=== PATIENT | male | born 1985 | race Caucasian/White ===

== ENCOUNTER 2022-07-22 12:09 | Emergency (ER) | payer OTHER, SELFPAY ==
[2022-07-22 12:23] VITALS: BP 149/104; PULSE 90; RESP 20; TEMP 36.6; O2SAT 98; BMI 41.4
--- NOTE | 2022-07-22 15:56 | ED.EYEPROB ---
HPI - Eye Problem <ASHLYN Cpoe - Last Filed: 07/22/22 17:02> General Chief complaint: Eye Problems Stated complaint: Spotchy vision, headaches x2days Time Seen by Provider: 07/22/22 15:40 Source: patient Mode of arrival: Family Vehicle History of Present Illness HPI Narrative: This is a 37-year-old male presents emergency complaining increasing frequency of headaches over the the last month, especially over the last 2 days with associated blurred vision with headache. He denies nausea or vomiting, fever, chills, upper respiratory infection, trauma, or other. He has right eye proptosis at baseline. States that he has been Working on his computer a lot lately, and having increased headaches, states that with his headache his vision is blurry sometimes. He has been taking ibuprofen and that has helped with rest and water. He denies trying other medications. He is pending a new patient primary care appointment, has not seen anyone for his headaches in the past, does not have a history of them except for over the last 1-2 months. He denies this being the worse it ever is, states that his symptoms right now are not that at all and it has improved since earlier this morning. He denies neck pain, or back pain. He denies any weakness, dizziness, altered mentation or other. Related Data Previous Rx's Medication Instructions Recorded ondansetron 4 mg disintegrating 4 mg PO Q8H PRN nausea and 07/22/22 tablet vomiting #10 tabs ondansetron 4 mg disintegrating 4 mg PO Q8H PRN nausea and 07/22/22 tablet vomiting #10 tabs Allergies Allergy/AdvReac Type Severity Reaction Status Date / Time No Known Drug Allergies Allergy Verified 07/22/22 12:31 Review of Systems <ASHLYN Cope - Last Filed: 07/22/22 17:02> Review of Systems ROS Unobtainable: All systems reviewed & are unremarkable except as noted in HPI and below Patient History <ASHLYN Cope - Last Filed: 07/22/22 17:02> Social History Smoking Status: Never smoker Smoking Status: Never smoker alcohol intake frequency: 0-2 drinks per day Substance Use Type: marijuana Exam <ASHLYN Cope - Last Filed: 07/22/22 17:02> Narrative Exam Narrative: Reviewed vitals signs and nursing notes. General: cooperative, comfortable, in no acute distress, well groomed HEENT: symmetrical facial expressions, moist mucous membranes, right eye proptosis, EOMI, PERRLA bilaterally, visual acuity right uncorrected 20 40, left uncorrected 2020, bilateral 2012. Left middle ear effusion, without abnormal TMs otherwise, without congestion or sinus tenderness, without C-spine tenderness to palpation, full range of motion of his neck MSK: moves all extremities, neurovascularly intact, no weakness, normal tone Skin: brisk capillary refill, without pallor or erythema Neuro: normal speech and cognition, A&O x3, ambulatory, clear speech, without any neuro deficit on exam Initial Vital Signs Initial Vital Signs: Vital Signs Temperature 97.8 F 07/22/22 12:23 Pulse Rate 90 07/22/22 12:23 Respiratory Rate 20 07/22/22 12:23 Blood Pressure 149/104 H 07/22/22 12:23 Pulse Oximetry 98 07/22/22 12:23 Oxygen Delivery Method 07/22/22 12:23 <Ratna Stewart DO - Last Filed: 07/23/22 12:52> Initial Vital Signs Initial Vital Signs: Vital Signs Temperature 97.8 F 07/22/22 12:23 Pulse Rate 90 07/22/22 12:23 Respiratory Rate 20 07/22/22 12:23 Blood Pressure 149/104 H 07/22/22 12:23 Pulse Oximetry 98 07/22/22 12:23 Oxygen Delivery Method 07/22/22 12:23 Course <ASHLYN Cope - Last Filed: 07/22/22 17:02> Vital Signs Vital signs: Vital Signs - 8 hr 07/22/22 12:23 07/22/22 16:04 Temperature 97.8 F 98.4 F Pulse Rate 90 71 Respiratory Rate 20 Blood Pressure 149/104 H 134/90 Pulse Oximetry 98 100 Oxygen Delivery Method Room Air Room Air <Ratna Stewart DO - Last Filed: 07/23/22 12:52> Vital Signs Vital signs: Vital Signs - 8 hr 07/22/22 12:23 07/22/22 16:04 Temperature 97.8 F 98.4 F Pulse Rate 90 71 Respiratory Rate 20 Blood Pressure 149/104 H 134/90 Pulse Oximetry 98 100 Oxygen Delivery Method Room Air Room Air [facility] - Eye Problem <Tayla ElliottASHLYN - Last Filed: 07/22/22 17:02> [facility] Narrative Medical decision making narrative: This is a 37-year-old gentleman who presents to the emergency department complaining of increasing frequency headaches over the last 1-2 months, states that his vision has been blurry with a last few headaches and states that that is a new symptom for him as he does not have a history of migraines. He does not have upper respiratory illness symptoms, he does have right eye proptosis at baseline, works on a computer and does not use corrective lenses, has not seen an neurology stroke physician in many years, and does not wear blue light lenses. I suspect that his headaches are likely related to his vision disability, his frequent computer use, and headache combined with blurred vision. His symptoms have been improved, discussed use migraine cocktail when the symptoms come on. Prescribed for him Zofran to use in conjunction with Tylenol and ibuprofen for his next headache with plenty of hydration. Patient has follow-up scheduled with a new provider, Lucero Dixon , I recommend that he discuss his migraine history with her and to follow-up with an neurology stroke physician before the end of the year if he is able. He may benefit from corrective lenses. Headache considerations include, but not limited to: Subarachnoid hemorrhage, but unlikely as patient denies sudden onset of pain, not worst of life, or neck pain Meningitis considered, but thought unlikely given lack of Brudzinski's, Kernig's sign, altered mental status or fever Giant cell arteritis considered, but thought unlikely given lack of unilateral findings, pain in adventism, vision change HTN Emergency considered, but thought unlikely given normal vitals Other serious diagnoses considered unlikely given lack of red flag findings such as sudden onset, increasing frequency, immunocompromise, systemic signs (fever, chills, stiff neck, or rash), focal neurologic findings, trauma, blood thinners, etc. Patient is appropriate and amenable to discharge home. Vital signs are stable on repeat examination is unremarkable. Patient has been informed of results. Patient has been given strict return to ER precautions for any new or worsening symptoms. Patient understands to follow up closely with outpatient providers as instructed. Patient understands plan and agrees to discharge home. All questions and concerns answered at this time. Discharge Plan Departure Patient Disposition: Home Clinical Impression: Ocular migraine Instructions: Migraine -- Adult Activity Restrictions/Additional Instructions: *You have been diagnosed with symptoms most consistent with migraine and ocular migraine. I am sorry for your symptoms, please follow-up with an neurology stroke physician that covered by your insurance, I have a strong feeling that your computer work and vision are contributing to these headaches both in severity and frequency. If you develop the worst headache of your life, have a black curtain covering your vision or some other significant change, please come back to the emergency department. For the next headache, please take 975 mg of Tylenol with 800 mg of ibuprofen, large glass of water, and rest. Please come back to the emergency department if you have nausea and vomiting or worsening pain. I hope you feel better soon, try some flu-like glasses, that can make it easier for you on the computer. I wish you well. I sent Zofran, a nausea medicine to the pharmacy at [facility], take this in conjunction with Tylenol ibuprofen for migraine, it can help prevent severe migraine and vision changes. *What to do: *Please continue to take your regular medications as directed. [x ] New medication prescriptions sent to your pharmacy: [[facility] ] [ ] New medication written as a paper prescription [ ] No new medications given *Please follow up with your primary care provider in 2-3 days, call for an appointment. Let them know you were seen in the Emergency Department and that we asked that you be seen for follow-up. We will electronically transmit a record of today's note if your PCP is in our system *If you do not have a primary care provider please contact [phone] to establish care with one of the [facility] primary care providers. *Return to Emergency Department if you should have any new, worsening, or concerning symptoms, such as [fever greater than 101F, chills, worsening pain, persistent vomiting or other bothersome symptoms]. Prescriptions: New ondansetron 4 mg tablet,disintegrating 4 mg PO Q8H PRN (Reason: nausea and vomiting) Qty: 10 0RF ondansetron 4 mg tablet,disintegrating 4 mg PO Q8H PRN (Reason: nausea and vomiting) Qty: 10 0RF Referrals: Agapito Dixon ARNP [Primary Care Provider] - Visit Report Forms: Patient Portal/API <Ratna Stewart DO - Last Filed: 07/23/22 12:52> Cosign ED Attending Miriam Attestation: I was immediately available in the department for consultation. Documentation has been reviewed.
--- NOTE | 2022-07-22 15:58 | PC.NURSE ---
assessment per Tayla GOLDBERG, this nurse in agreement.
[2022-07-22 16:04] VITALS: BP 134/90; PULSE 71; TEMP 36.9; O2SAT 100
== END 2022-07-22 16:05 | disposition home or self-care (01) ==
PROVIDERS: Emergency Provider Nurse Practitioner Critical Care Medicine; PCP Registered Nurse Diabetes Educator
DX: G43.109 Migraine with aura, not intractable, without status migrainosus (principal); H53.8 Other visual disturbances
CPT/HCPCS: 99281; 99282

== ENCOUNTER → 2022-12-17 12:16 | Outpatient (CLI) | payer OTHER, SELFPAY ==
[2022-12-17 14:07] LABS: Add Manual Diff / Slide Review NO; Basophils Absolute Auto 0 /uL (0-100); Basophils Percent Auto 0.6 % (0-2); Eosinophils Absolute Auto 0 /uL (0-450); Eosinophils Percent Auto 0.5 % (2-4); Hematocrit 45.7 % (41-53); Hemoglobin 16.2 g/dL (13.5-17.5); Lymphocytes Absolute Auto 1700 /uL (1100-4500); Lymphocytes Percent Auto 29.5 % (25-40); Mean Corpuscular HGB Conc 35.5 % (30-36); Mean Corpuscular Hemoglobin 32.8 PG (26-34); Mean Corpuscular Volume 92.4 fL (80-100); Monocytes Absolute Auto 400 /uL (0-900); Monocytes Percent Auto 7.4 % (3-14); Neutrophils Absolute Auto 3600 /uL (1500-7000); Platelet Count 255 X10^3/uL (150-400); Red Blood Cell Count 4.95 X10^6/uL (4.5-5.9); Red Cell Distribution Width 12.4 % (11.6-14.8); White Blood Cell Count 5.8 X10^3/uL (4.5-11.0)
[2022-12-17 14:43] LABS: Alanine Aminotransferase 66 IU/L (<50); Albumin 4.3 g/dL (3.5-5.0); Albumin Globulin Ratio 1.3 (1.0-2.8); Alkaline Phosphatase 110 U/L (38-126); Aspartate Aminotransferase 51 IU/L (17-59); BUN Creatinine Ratio 12.1 (6-22); Bilirubin Total 0.8 mg/dL (0.2-1.3); Blood Urea Nitrogen 13 mg/dL (9-20); Calcium 9.4 mg/dL (8.4-10.2); Carbon Dioxide 30 mmol/L (22-32); Chloride 103 mmol/L (98-107); Cholesterol 173 mg/dL (140-199); Estimated Glomerular Filt Rate > 60 mL/min (>60); Globulin 3.2 g/dL (1.7-4.1); Glucose 89 mg/dL (70-100); HDL Cholesterol 44 mg/dL (40-60); HEMOLYSIS < 15 (0-50); LDL Cholesterol Calculated 104 mg/dL (<100); Potassium 4.1 mmol/L (3.4-5.1); Sodium 138 mmol/L (137-145); Total Protein 7.5 g/dL (6.3-8.2); Triglycerides 123 mg/dL (35-150)
[2022-12-17 16:43] LABS: Creatinine Urine Random 119.7 mg/dL
[2022-12-17 16:51] LABS: Microalbumin Urine Random < 0.6 mg/dL (0-1.6)
[2022-12-17 17:11] LABS: TSH w/ Reflex to FT4 3.35 uIU/mL (0.47-4.68)
== END ==
PROVIDERS: PCP Family Medicine; Referring Provider Family Medicine; Visit Provider Family Medicine
DX: Z83.3 Family history of diabetes mellitus (principal); Z00.00 Encounter for general adult medical examination without abnormal findings
CPT/HCPCS: 36415; 80053; 80061; 82043; 82570; 83036; 84443; 85025

== ENCOUNTER → 2023-04-12 08:03 | Outpatient (CLI) | payer OTHER, SELFPAY ==
[2023-04-12 08:32] LABS: Add Manual Diff / Slide Review NO; Basophils Absolute Auto 0 /uL (0-100); Basophils Percent Auto 0.4 % (0-2); Eosinophils Absolute Auto 0 /uL (0-450); Eosinophils Percent Auto 0.7 % (2-4); Hematocrit 43.3 % (41-53); Hemoglobin 15.6 g/dL (13.5-17.5); Lymphocytes Absolute Auto 1700 /uL (1100-4500); Lymphocytes Percent Auto 32.8 % (25-40); Mean Corpuscular Volume 91.7 fL (80-100); Monocytes Absolute Auto 500 /uL (0-900); Monocytes Percent Auto 10.1 % (3-14); Neutrophils Absolute Auto 2900 /uL (1500-7000); Platelet Count 235 X10^3/uL (150-400); Red Blood Cell Count 4.72 X10^6/uL (4.5-5.9); Red Cell Distribution Width 12.3 % (11.6-14.8); White Blood Cell Count 5.2 X10^3/uL (4.5-11.0)
[2023-04-12 08:59] LABS: Alanine Aminotransferase 42 IU/L (<50); Albumin Globulin Ratio 1.4 (1.0-2.8); Alkaline Phosphatase 89 U/L (38-126); Aspartate Aminotransferase 38 IU/L (17-59); BUN Creatinine Ratio 10.5 (6-22); Bilirubin Total 1.3 mg/dL (0.2-1.3); Blood Urea Nitrogen 13 mg/dL (9-20); Carbon Dioxide 28 mmol/L (22-32); Chloride 104 mmol/L (98-107); Estimated Glomerular Filt Rate > 60 mL/min (>60); Globulin 2.9 g/dL (1.7-4.1); Glucose 101 mg/dL (70-100); HEMOLYSIS < 15 (0-50); Potassium 4.3 mmol/L (3.4-5.1); Sodium 138 mmol/L (137-145); Total Protein 6.9 g/dL (6.3-8.2)
== END ==
PROVIDERS: PCP Family Medicine; Referring Provider Family Medicine; Visit Provider Family Medicine
DX: F32.A Depression, unspecified (principal); K52.9 Noninfective gastroenteritis and colitis, unspecified
CPT/HCPCS: 36415; 80053; 85025

== ENCOUNTER 2023-07-22 08:46 | Day surgery (SDC) | payer OTHER, SELFPAY ==
--- NOTE | 2023-07-22 | PATH_ITS ---
[facility] Accession Number: [id number] No. of containers..06 Tissue . 01 Material submitted: . PART A: ileum - TERMINAL ILEUM PART B: colon - ASCENIDNG POLYPS PART C: colon - RANDOM COLON PART D: colon - DESCENDING PART E: sigmoid colon - SIGMOID 30cm POLYP PART F: rectum - RECTAL POLYP . 01 Diagnosis: A. Terminal Ileum, Biopsy: Severely active ileitis with ulcer. Negative for granulomas, dysplasia, and malignancy. . B. Ascending Colon, Polyps: Sessile serrated adenoma. Benign intramucosal lipoma. . C. Random Colon, Biopsies: Colonic mucosa with no diagnostic abnormality. Negative for active, chronic, and microscopic colitis. Negative for dysplasia and malignancy. . D. Descending Colon, Biopsy: Colonic mucosa with vascular congestion, focally denuded epithelium and focal crypt atrophy. Please see comment. Negative for granulomas, dysplasia, and malignancy. . E. Sigmoid Colon, Polyp 30 cm: Tubulovillous adenoma. No evidence of malignancy or high-grade dysplasia. . F. Rectum, Polyp: Tubular adenoma. [facility] 07/31/2023 1755 Local . 01 Comment: A. The terminal ileum biopsies show severe neutrophilic activity including ulceration. No obvious viral cytopathic effects or parasitic organisms are identified. No pseudopyloric metaplasia is seen. The principal differential diagnosis includes medication-related mucosal injury (i.e., NSAIDs) and Crohn's disease. . D. The descending colon biopsy shows scattered areas of vascular congestion and a focally denuded epithelium with adjacent focal crypt atrophy suggestive of ischemia-type changes. The differential diagnosis includes true vascular ischemia, ischemia due to infection (i.e., enterohemorrhagic E. coli, C. difficile, etc.) or ischemia due to trauma/prolapse. . 01 Electronically signed: . Tayla Quintero MD, Pathologist NPI- [id number] . 01 Gross description: . Part A: TERMINAL ILEUM: Received in formalin are 2 fragment(s) of guthrie, soft tissue measuring 0.3 x 0.3 x 0.2 cm to 0.4 x 0.2 x 0.2 cm submitted entirely in 1 cassette(s) Part B: ASCENIDNG POLYPS: Received in formalin are 2 fragment(s) of guthrie, soft tissue measuring 0.2 x 0.2 x 0.2 cm to 0.4 x 0.2 x 0.2 cm submitted entirely in 1 cassette(s) Part C: RANDOM COLON: Received in formalin is 1 fragment(s) of guthrie, soft tissue measuring 0.4 x 0.3 x 0.2 cm submitted entirely in 1 cassette(s) Part D: DESCENDING: Received in formalin are 2 fragment(s) of guthrie, soft tissue measuring 0.1 x 0.1 x 0.1 cm to 0.4 x 0.2 x 0.2 cm submitted entirely in 1 cassette(s) Part E: SIGMOID 30cm POLYP: Received in formalin is 1 fragment of guthrie soft tissue measuring 1.6 x 1.5 x 1.5 cm. Specimen is sectioned and submitted in its entirety in 2 cassettes. Part F: RECTAL POLYP: Received in formalin is 1 fragment(s) of guthrie, soft tissue measuring 0.2 x 0.2 x 0.2 cm submitted entirely in 1 cassette(s) /JOSE A 07/23/2023 1923 Local . 01 Pathologist provided ICD-10: D12.2, D12.5, D12.8 . 01 CPT . 549491, 400000, 429081, 772229, 785333, 538370 Specimen Comment: A courtesy copy of this report has been sent to [phone] Performed at: 01 [facility] [address] [place] [address] [id number] MD Andrew Mcgill MD Phone: [phone]
[2023-07-22 09:13] VITALS: BP 137/101; PULSE 93; RESP 16; TEMP 36.3; O2SAT 97; BMI 45.6
[2023-07-22] MEDS: LACTATED RINGERS 1,000 ML 120 ML IV (09:20)
--- NOTE | 2023-07-22 09:59 | PM.HP.1 ---
History of Present Illness History of Present Illness Date Patient Seen: 07/22/23 Time Patient Seen: 09:59 Chief complaint: SDC Narrative: I reviewed the recent office note. No significant changes. Patient has been having diarrhea constipation abdominal pain and rectal bleeding. Colonoscopy is pursued today. [facility] Medical History Chronic diarrhea Depression Chorioretinopathy Decreased renal function (~2021) Kidney stones (~2021) Seborrheic dermatitis Heart abnormality (~2020) Migraine headache with aura (~2022) Well adult health check Family History Father Cancer Diabetes mellitus Hypertension Hyperlipidemia Mental health problem Mother Diabetes mellitus Hypertension Hyperlipidemia Brother Diabetes mellitus Mental health problem Sister Diabetes mellitus Grandfather History of heart disease Mental health problem Stroke Grandmother History of heart disease Stroke Grandfather No problems noted. Grandmother Cancer Diabetes mellitus Social History household members: spouse Smoking Status: Never smoker alcohol intake: current Meds Home Medications and Allergies Allergies Allergy/AdvReac Type Severity Reaction Status Date / Time No Known Drug Allergies Allergy Verified 07/22/23 09:29 Review of Systems Review of Systems ROS: Yes All systems reviewed with the patient and are negative except as otherwise documented Exam Vital Signs (past 8 hours): - 07/22/23 09:13 Temperature 97.3 F L Pulse Rate 93 H Respiratory Rate 16 Blood Pressure 137/101 H Pulse Oximetry 97 Oxygen Delivery Method Room Air Oxygen Delivery Method Room Air Const General: cooperative HENMT Head: normal to inspection Eyes General: appearance normal, both eyes and all related structures Neck Neck: normal visual inspection Chest Chest: normal inspection of the chest Resp Effort & Inspection: normal respiratory effort Cardio Rate: regular rate GI Inspection: normal to inspection Skin General: no rashes or lesions noted Neuro General: patient alert and patient awake Extrem General: normal to inspection and no pedal edema Psych Appearance: grossly normal Assessment & Plan Assessment & Plan narrative: 38-year-old male with abdominal pain, diarrhea, constipation, rectal bleeding. Diagnostic colonoscopy is pursued today.
--- NOTE | 2023-07-22 10:00 | PM.PREOP ---
Pre-operative Note Interval Note History & Physical reviewed/Exam performed by Physician: Yes Changes to H&P: No ASA Class (for procedural sedation): III
--- NOTE | 2023-07-22 11:13 | PM.OP.COLON ---
Operative Date/Time/Diagnoses Date of procedure: 07/22/23 Time of procedure: 11:13 Pre-op diagnosis: Rectal bleeding, diarrhea, constipation, abdominal pain Post-op diagnosis: same Procedure & Clinicians Study performed: Colonoscopy with hot snare polypectomy, cold snare polypectomy, and biopsies. Same procedure as scheduled: Yes Indications: Rectal bleeding, diarrhea, constipation, abdominal pain Surgeon: Chan Medina Procedure Notes SCOAP/Timeout: Done Procedure in detail: After the risks and benefits were explained, written and verbal informed consent was obtained. The patient was brought into the procedure room and placed into the left lateral decubitus position. Please see anesthesia notes for sedation details. Digital rectal examination was accomplished. The scope was introduced into the patient and advanced under direct visualization to the cecum as identified by the appendiceal orifice and ileocecal valve. The scope was slowly withdrawn to carefully examine the mucosa for any defects or lesions. Comprehensive imaging was accomplished throughout the rectum including the dentate line. The colon was decompressed, the scope was then removed from the patient who tolerated the procedure well. Adult colonoscope Bowel prep adequate Scope withdrawal time: 21 minutes Sedation minutes: 29 Complications: none Impression: The terminal ileum was inspected and demonstrated some erosive features. These were biopsied. There was no evidence of proctitis. In the descending colon there were some scattered erosive features and these were targeted for histopathology. I otherwise took a separate set of random colon biopsies for histologic contrast from normal-appearing colon. In the ascending colon there was a diminutive polyp removed with Jumbo forceps. Adjacent this polyp was a sessile 6 mm polyp removed with hot snare. In the sigmoid colon at about 30 cm from the anal verge there was a pedunculated 20 mm polyp removed with hot snare. In the rectum there was a diminutive 5 mm polyp removed with cold snare. The patient had evidence of grade 1-2 internal hemorrhoids. Endoscopic diagnosis 1. Multiple colon polyps 2. Mild terminal ileitis 3. Scattered descending colon erosive features 4. Grade 1-2 hemorrhoids. Post-procedure Plan for aftercare: 1. Await histology. 2. Follow up GI clinic. 3. Repeat colonoscopy will be contingent on histology results but will likely be in no later than 3 years. Disposition: PACU
[2023-07-22 11:14] VITALS: BP 117/80; PULSE 96; RESP 14; TEMP 36.4; O2SAT 98
[2023-07-22 11:20] VITALS: BP 122/78; PULSE 78; RESP 16; TEMP 36.2; O2SAT 96
[2023-07-22 11:25] VITALS: BP 122/78; PULSE 78; RESP 13; O2SAT 96
[2023-07-22 11:38] VITALS: BP 137/95; PULSE 72; RESP 14; TEMP 36.2; O2SAT 97
== END 2023-07-22 11:46 | disposition home or self-care (01) ==
PROVIDERS: PCP Family Medicine; Referring Provider Internal Medicine Gastroenterology; Visit Provider Internal Medicine Gastroenterology
PROC: 0DJD8ZZ Inspection of Lower Intestinal Tract, Via Natural or Artificial Opening Endoscopic (ICD-10-PCS; CPT 45378; principal; 2023-07-22 10:00)
DX: K62.5 Hemorrhage of anus and rectum (principal); R10.30 Lower abdominal pain, unspecified; K64.1 Second degree hemorrhoids; K52.9 Noninfective gastroenteritis and colitis, unspecified; K52.89 Other specified noninfective gastroenteritis and colitis; D12.2 Benign neoplasm of ascending colon; D12.5 Benign neoplasm of sigmoid colon; D12.8 Benign neoplasm of rectum
CPT/HCPCS: 45385; 45380; J2704

== ENCOUNTER 2024-04-24 08:35 | Emergency (ER) | payer OTHER, SELFPAY ==
[2024-04-24] VITALS (14 sets, daily range): BP systolic 133–160; BP diastolic 70–90; PULSE 65–75; RESP 16; TEMP 36.6; O2SAT 95–100; BMI 47.5
--- NOTE | 2024-04-24 08:54 | EKG_ITS ---
[facility] [address] [address] Test Date: 2024-04-24 Pat Name: Andrew Adam Department: [facility] Room: Gender: Male [employer] Feeder: RUSSEL : 1985 Requested By: Order Number: [id number] Reading MD: Omar Delacruz MD Measurements Intervals [place] Rate: 70 P: 33 WV: 166 QRS: -14 QRSD: 92 T: -1 QT: 420 QTc: 453 Interpretive Statements Normal sinus rhythm Electronically Signed On 04-24-2024 12:54:58 PDT by Omar Delacruz MD
[2024-04-24 09:22] LABS: Add Manual Diff / Slide Review NO; Basophils Absolute Auto 100 /uL (0-100); Basophils Percent Auto 0.9 % (0-2); Eosinophils Absolute Auto 0 /uL (0-450); Eosinophils Percent Auto 0.7 % (2-4); Hematocrit 44.1 % (41-53); Hemoglobin 15.5 g/dL (13.5-17.5); Lymphocytes Absolute Auto 1500 /uL (1100-4500); Lymphocytes Percent Auto 26.1 % (25-40); Mean Corpuscular Hemoglobin 32.8 PG (26-34); Mean Corpuscular Volume 93.8 fL (80-100); Monocytes Absolute Auto 500 /uL (0-900); Monocytes Percent Auto 8.7 % (3-14); Neutrophils Absolute Auto 3700 /uL (1500-7000); Neutrophils Percent Auto 63.6 % (50-75); Platelet Count 254 X10^3/uL (150-400); Red Blood Cell Count 4.71 X10^6/uL (4.5-5.9); Red Cell Distribution Width 12.5 % (11.6-14.8); White Blood Cell Count 5.9 X10^3/uL (4.5-11.0)
[2024-04-24 09:29] LABS: Prothrombin Time 11.1 SECONDS (9.4-12.5)
[2024-04-24 09:32] LABS: PTT Partial Thromboplastin Tim 37 SECONDS (25.1-36.5)
[2024-04-24 09:33] LABS: Alanine Aminotransferase 59 IU/L (<50); Albumin Globulin Ratio 1.3 (1.0-2.8); Alkaline Phosphatase 104 U/L (38-126); Aspartate Aminotransferase 45 IU/L (17-59); BUN Creatinine Ratio 13.3 (6-22); Bilirubin Total 0.9 mg/dL (0.2-1.3); Blood Urea Nitrogen 15 mg/dL (9-20); Calcium 8.9 mg/dL (8.4-10.2); Carbon Dioxide 27 mmol/L (22-32); Chloride 104 mmol/L (98-107); Estimated Glomerular Filt Rate > 60 mL/min (>60); Glucose 102 mg/dL (70-100); HEMOLYSIS 16 (0-50); Potassium 4.2 mmol/L (3.4-5.1); Sodium 135 mmol/L (137-145)
[2024-04-24] MEDS: PANTOPRAZOLE 40 MG VIAL 80 MG IV (09:42)
--- NOTE | 2024-04-24 09:48 | ED.GIBLEED ---
HPI - GI Bleed General Chief complaint: GI Bleed Stated complaint: black stool, abd cramping Time Seen by Provider: 04/24/24 08:42 History of Present Illness HPI Narrative: 38-year-old male with history of prior GI bleeding last year, recalls black and slight red stools, had lower endoscopy by a GI specialist from [place] done here in [place], polyps were removed, no cancers, no diagnosis specifically otherwise identified, no upper endoscopy, was advised not to take ibuprofen, last night had crampy abdominal discomfort lower, with a large tarry stool, felt better, no weakness or dizziness, no syncope or presyncope, no chest pain or shortness of breath, felt better, slept overnight, again this morning had loose stool that did not seem to have any black or red color, then another small loose stool with slight black color component 7 this morning, still without dizziness, no syncope or presyncope symptoms. Abdominal cramping seems present but decreased from prior. No fevers or chills. No recent antibiotics. He does not recall any established diagnosis of Crohn's disease, inflammatory bowel disease, cancers of the bowel. He does not take blood thinner medications. No injury trauma. Denies use of Pepto-Bismol Related Data Previous Rx's Medication Instructions Recorded amoxicillin 875 mg-potassium 1 tab PO BID #20 tabs 04/24/24 clavulanate 125 mg tablet Allergies Allergy/AdvReac Type Severity Reaction Status Date / Time No Known Drug Allergies Allergy Verified 11/05/23 13:40 Review of Systems Review of Systems Narrative: see HPI Patient History Medical History (Updated 04/24/24 @ 13:11 by Nico Sanchez MD) Pre-operative cardiovascular examination Inflammatory bowel disease (ulcerative colitis) Chronic diarrhea Depression Chorioretinopathy Decreased renal function (~2021) Kidney stones (~2021) Seborrheic dermatitis Heart abnormality (~2020) Migraine headache with aura (~2022) Well adult health check Family History Father Cancer Diabetes mellitus Hypertension Hyperlipidemia Mental health problem Mother Diabetes mellitus Hypertension Hyperlipidemia Brother Diabetes mellitus Mental health problem Sister Diabetes mellitus Grandfather History of heart disease Mental health problem Stroke Grandmother History of heart disease Stroke Grandfather No problems noted. Grandmother Cancer Diabetes mellitus Social History household members: spouse Smoking Status: Never smoker alcohol intake: current Smoking Status: Never smoker alcohol intake frequency: holidays/special occasions only Substance Use Type: marijuana Exam Narrative Exam Narrative: GENERAL: Well-developed patient, in mild distress. Morbidly obese HEAD: Atraumatic. Normocephalic. EYES: Pupils equal round and reactive. Extraocular motions intact. No scleral icterus. No injection or drainage. ENT: Nose without bleeding, purulent drainage. Throat without erythema, tonsillar hypertrophy or exudate. Airway patent. NECK: Trachea midline. Non tender CARDIOVASCULAR: Regular rate and rhythm without murmurs, gallops, or rubs. RESPIRATORY: Clear to auscultation. Breath sounds equal bilaterally. No wheezes, rales, or rhonchi. GASTROINTESTINAL: Abdomen soft, non-tender, nondistended. EXTREMITIES: No edema or joint tenderness. BACK: Nontender without deformity or crepitance. No flank tenderness. NEURO: AOx3. Right lateral eye deviation since childhood, has had corrective surgery, no diplopia. Otherwise normal cranial nerves, no other gross motor defects SKIN: No rash or erythema of visible areas Initial Vital Signs Initial Vital Signs: Vital Signs Pulse Rate 69 04/24/24 08:53 Blood Pressure 141/90 H 04/24/24 08:53 Pulse Oximetry 98 04/24/24 08:53 Course Orders Ordered: Discontinued Medications Amoxicillin/Clavulanate Potassium (Amoxicillin/Clav 875/125 Mg) 1 tab PO NOW ONE Stop: 04/24/24 12:25 Last Admin: 04/24/24 12:48 Dose: Not Given Documented By: BRENT Piperacillin Sod/Tazobactam (Sod 4.5 gm/ Sodium Chloride) 100 mls @ 200 mls/hr IV NOW ONE Stop: 04/24/24 12:26 Last Infusion: 04/24/24 13:29 Dose: Infused Documented By: Admin: 04/24/24 12:50 Dose: 200 mls/hr Documented By: BRENT Ondansetron HCl (Ondansetron 4 Mg/2 Ml Inj) 4 mg IV NOW PRN PRN Reason: Nausea And Vomiting Ondansetron HCl (Ondansetron 4 Mg Odt) 4 mg SL NOW PRN PRN Reason: Nausea And Vomiting Pantoprazole Sodium (Pantoprazole 40 Mg Vial) 80 mg IV NOW ONE Stop: 04/24/24 08:45 Last Admin: 04/24/24 09:42 Dose: 80 mg Documented By: CTS Vital Signs Vital signs: Vital Signs - 8 hr 04/24/24 12:50 04/24/24 12:55 Pulse Rate 71 Blood Pressure 142/83 H Pulse Oximetry 99 MDM - GI Bleed Lab Data Attestation: I reviewed the patient's lab results. 04/24/24 09:08 04/24/24 09:08 Labs: Lab Results 04/24/24 Range/Units 09:08 WBC 5.9 (4.5-11.0) X10^3/uL RBC 4.71 (4.5-5.9) X10^6/uL Hgb 15.5 (13.5-17.5) g/dL Hct 44.1 (41-53) % MCV 93.8 (80-100) fL MCH 32.8 (26-34) PG MCHC 35.0 (30-36) % RDW 12.5 (11.6-14.8) % Plt Count 254 (150-400) X10^3/uL Neut % (Auto) 63.6 (50-75) % Lymph % (Auto) 26.1 (25-40) % Barry % (Auto) 8.7 (3-14) % Eos % (Auto) 0.7 L (2-4) % Baso % (Auto) 0.9 (0-2) % Neut # (Auto) 3700 (0725-9012) /uL Lymph # (Auto) 1500 (4620-3565) /uL Barry # (Auto) 500 (0-900) /uL Eos # (Auto) 0 (0-450) /uL Baso # (Auto) 100 (0-100) /uL PT 11.1 (9.4-12.5) SECONDS INR 1.0 (0.9-1.3) APTT 37 H (25.1-36.5) SECONDS Sodium 135 L (137-145) mmol/L Potassium 4.2 (3.4-5.1) mmol/L Chloride 104 (98-107) mmol/L Carbon Dioxide 27 (22-32) mmol/L BUN 15 (9-20) mg/dL Creatinine 1.13 (0.66-1.25) mg/dL Estimated GFR > 60 (>60) mL/min BUN/Creatinine Ratio 13.3 (6-22) Glucose 102 H (70-100) mg/dL Calcium 8.9 (8.4-10.2) mg/dL Total Bilirubin 0.9 (0.2-1.3) mg/dL AST 45 (17-59) IU/L ALT 59 H (<50) IU/L Alkaline Phosphatase 104 (38-126) U/L Total Protein 7.0 (6.3-8.2) g/dL Albumin 4.0 (3.5-5.0) g/dL Globulin 3.0 (1.7-4.1) g/dL Albumin/Globulin Ratio 1.3 (1.0-2.8) Blood Type O Positive Antibody Screen Negative Urine Dip Bedside Urine Glucose Negative Bedside Urine Bilirubin - Negative Bedside Urine Ketone - Negative Urine Specific [place] 1.015 Bedside Urine Occult Blood - Negative Bedside Urine pH 8.0 Bedside Urine Protein - Negative Bedside Urine Urobilinogen - Negative Bedside Urine Nitrite - Negative Bedside Urine Leukocytes - Negative Esterase ECG Data Attestation: I personally reviewed and interpreted this ECG as follows: Interpretation: Normal sinus rhythm with rate of 70. No obvious ST segment elevation or depression changes. T-wave inversion lead 3, flat T-waves F, upright T-waves lead 2. MA 166, QRS 92. QTC 453. MDM Narrative Medical decision making narrative: 38-year-old male with history of GI bleeding of unclear cause, lower endoscopy last year by [facility] specialist having procedure surgery center [place], polypectomy, no cancers known, no chronic GI disorders established, now with intermittent black stools since last night, crampy abdominal pain last night, less so this morning. Afebrile, sirs screen negative. Screening labs sent. Keep NPO. CT abdomen and pelvis GI bleed protocol scanning anticipated. IV Protonix bolus. Type and screen White blood cell count 5900, hemoglobin 15 0.5, platelets adequate. CMP unremarkable. CT abdomen and pelvis GI bleed protocol ordered CT abdomen and pelvis with IV contrast. Impressions: ?No visualized active extravasation to signify source of hemorrhage. Mild thickened appearance of the distal ascending colon. This could be related to incomplete distention or small focal area developing colitis. Underlying masses felt to be less likely. However interval follow up colonoscopy maybe obtained. Minimal diverticula without inflammatory change. See radiology report Possible underdistention versus small area colitis, recent melanotic stools, we will cover with antibiotics for now, IV Zosyn. 1210, case discussed with general surgery Dr. Covington, who believes patient is stable at present, to attempt trial outpatient treatment with antibiotics, close follow up and return warnings. Patient agreeable to this plan. We will send prescription for Augmentin antibiotic to his pharmacy. Advised recheck Saturday with his regular doctor. Return warnings discussed Critical Care Time Critical Care Time Critical Care Time: Yes Total Critical Care Time: 31 Attestation: The high probability of a clinically significant, sudden or life threatening deterioration of the [gastrointestinal, abdominopelvic, hematologic] system(s) required my full and direct attention, intervention and personal management. The aggregate critical care time was [31] minutes. This time is in addition to time spent performing reported procedures but includes the following: [x] Data Review and interpretation [x] Patient assessment and monitoring of vital signs [x] Documentation [x] Medication orders and management Discharge Plan Departure Patient Disposition: Home Clinical Impression: Melanotic stools, Colitis Instructions: DI for Colitis Activity Restrictions/Additional Instructions: You reported history of GI bleeding problems felt to be lower in origin last year, endoscopy by Gastroenterology specialist based out of [place] at that time reportedly had polyp removed, no cancers, no specific diagnosis recalled. Now with intermittent black stooling. No fever on triage. Vital signs unremarkable. CT scanning of the abdomen and pelvis today showed no extravasation of fluid, no bleeding seemed to be obvious, there was a focal area of underdistention in the colon, possible area of colitis. It is possible this area is just underdistended and therefore thickened and not actually infected. However it is unclear why he might have lower abdominal discomfort and GI bleeding. We will start antibiotics. IV Zosyn 1st antibiotic given in the emergency department. Case was discussed with General surgery, who felt you are currently stable for attempted oral antibiotics outpatient trial. Recheck with your regular doctor on Saturday. Consider also follow up with your [facility] structural analyst. Contact information for General surgery also provided. Recheck at least with your regular provider on Saturday to assess symptoms and consider repeat labs at that time. Return earlier to this/nearest emergency department for any change worsening symptoms or any concerns prior. Avoid use of aspirin or any blood thinning medications. Prescriptions: New amoxicillin-pot clavulanate 875-125 mg tablet 1 tab PO BID Qty: 20 0RF Referrals: Caleb Covington MD [Physician] - Abe Trinidad DO [Primary Care Provider] - Stand Alone Forms: Patient Portal/API
--- NOTE | 2024-04-24 10:28 | DI.CT.S_ITS ---
PROCEDURE: CT ANGIO ABD/PEL GI BLEED INDICATIONS: black stool TECHNIQUE: After the administration of intravenous contrast, 2.5 mm thick sections acquired from the diaphragm to the symphysis. 10 mm maximum-intensity projection (MIP) reformats were then acquired. For radiation dose reduction, the following was used: automated exposure control. COMPARISON: None. FINDINGS: Image Quality: Diagnostic. Abdominal aorta: No aortic aneurysm or evidence of acute aortic syndrome. Mesenteric arteries: Patent without hemodynamically significant stenosis. No visualized desirae are extravasation within the bowel to signifies source of hemorrhage. Renal arteries: Patent without hemodynamically significant stenosis. OTHER: Lower Chest: No significant findings. Liver: No solid mass. Gallbladder: No radiopaque gallstones or wall thickening. Biliary ducts: No biliary dilation. Pancreas: No ductal dilation. Spleen: Size is within normal limits. Adrenal Glands: No adrenal nodules. Kidneys and Ureters: No hydronephrosis. No solid mass. No complex renal cystic lesion which requires follow up. Stomach and Bowel: No obstruction. Mild appearance of thickening in the distal ascending colon. No significant inflammatory change. Minimal scattered diverticula. Peritoneum: No abnormal intraperitoneal fluid. No free air. Ventral Wall: No hernia. Abdominal Nodes: No retroperitoneal or mesenteric adenopathy by size criteria. Vessels: Aorta and inferior vena cava are normal in size. PELVIS: Pelvic Organs: Unremarkable. Bladder: Unremarkable. Pelvic Nodes: No enlarged lymph nodes. Miscellaneous: No inguinal hernias are seen. Bones: No aggressive osseous abnormality. Chronic appearing compression deformities at L2 and L1. IMPRESSION: No visualized active extravasation to signify source of hemorrhage. Mild thickened appearance of the distal ascending colon. This could be related to incomplete distention or small focal area developing colitis. Underlying mass is felt to be less likely. However, interval follow-up or colonoscopy may be obtained. Minimal diverticula without inflammatory change. Dictated by: Flory Ferrari M.D. on 04/24/2024 at 11:06 Approved by: Flory Ferrari M.D. on 04/24/2024 at 11:09
[2024-04-24] MEDS: PIPERACILLIN/TAZO 4.5 GM in SODIUM CHLORIDE 0.9% 100 ML IV (12:50)
== END 2024-04-24 13:31 | disposition home or self-care (01) ==
PROVIDERS: Emergency Provider Emergency Medicine; PCP Family Medicine
DX: K52.9 Noninfective gastroenteritis and colitis, unspecified (principal); K92.1 Melena; E66.01 Morbid (severe) obesity due to excess calories; Z68.42 Body mass index [BMI] 45.0-49.9, adult
CPT/HCPCS: 36415; 74174; 80053; 81003; 85025; 85610; 85730; 86850; 86900; 86901; 93005; 93010; 96365; 96375; 99284; J2470; J2543; Q9967

== ENCOUNTER 2024-08-03 09:49 | Day surgery (SDC) | payer OTHER, SELFPAY ==
--- NOTE | 2024-08-03 | PATH_ITS ---
[facility] Accession Number: [id number] No. of containers..01 Tissue . 01 Material submitted: . colon - COLON, POLYP 25 CM . 01 Diagnosis: COLON, POLYP 25 CM: Tubular adenoma. [facility] 08/05/2024 1358 Local . 01 Electronically signed: . Andrew Mcgill MD, Pathologist NPI- [id number] . 01 Gross description: . Received in formalin with two patient identifiers and polyp 25 cm, is a single guthrie soft tissue fragment 0.3 cm in greatest dimension. Submitted in cassette A1. ([id number]) /ARTURO 08/05/2024 1358 Local . 01 Pathologist provided ICD-10: D12.6 . 01 CPT . 577097 Specimen Comment: A courtesy copy of this report has been sent to [phone] Performed at: [address] [facility] [address], [place], [place] [id number] MD Andrew Mcgill MD Phone: [phone]
[2024-08-03 11:10] VITALS: BP 154/107; PULSE 102; RESP 18; TEMP 36.4; O2SAT 94
--- NOTE | 2024-08-03 11:27 | P.HP_ITS ---
History of Present Illness History of Present Illness Chief complaint: [facility] Narrative: History of colon polyps and history of terminal ileal erosions. Need for follow-up colonoscopy [facility] Medical History Pre-operative cardiovascular examination Inflammatory bowel disease (ulcerative colitis) Chronic diarrhea Depression Chorioretinopathy Decreased renal function (~2021) Kidney stones (~2021) Seborrheic dermatitis Heart abnormality (~2020) Migraine headache with aura (~2022) Well adult health check Family History Father Cancer Diabetes mellitus Hypertension Hyperlipidemia Mental health problem Mother Diabetes mellitus Hypertension Hyperlipidemia Brother Diabetes mellitus Mental health problem Sister Diabetes mellitus Grandfather History of heart disease Mental health problem Stroke Grandmother History of heart disease Stroke Grandfather No problems noted. Grandmother Cancer Diabetes mellitus Social History household members: spouse Smoking Status: Never smoker alcohol intake: never Meds Home Medications and Allergies Home Medications Medication Instructions Recorded Confirmed Type amoxicillin 875 mg-potassium 1 tab PO BID #20 tabs 04/24/24 04/27/24 Rx clavulanate 125 mg tablet Allergies Allergy/AdvReac Type Severity Reaction Status Date / Time No Known Drug Allergies Allergy Verified 08/03/24 11:09 Exam Vital Signs (past 8 hours): - 08/03/24 11:10 Temperature 97.5 F L Pulse Rate 102 H Respiratory Rate 18 Blood Pressure 154/107 H Pulse Oximetry 94 Oxygen Delivery Method Room Air Oxygen Delivery Method Room Air Narrative Exam Narrative: Oropharynx free of lesions Chest clear to auscultation percussion Cardiac exam reveals no S3 or murmur Assessment & Plan Assessment & Plan narrative: History of colon polyps and history of terminal ileal erosions. Need for follow-up colonoscopy. Risks benefits and alternatives been explained Time-Based Coding :: [TOTAL MINUTES] spent with patient and on the chart (including review of chart, obtaining history, exam, reviewing outside data, placing orders, documenting exam and treatment plan, and counseling patient) on [DATE].
--- NOTE | 2024-08-03 11:28 | PM.OP.COLON ---
Operative Date/Time/Diagnoses Date of procedure: 08/03/24 Pre-op diagnosis: See indication and findings Procedure & Clinicians Study performed: Colonoscopy Indications: History of colon polyps add history of terminal ileal erosions Surgeon: Jose Mills Procedure Notes Procedure in detail: After informed consent was obtained the patient was placed in left lateral decubitus position. The video colonoscope was introduced the rectum slowly advanced cecum. On slow withdrawal mucosa was carefully evaluated. Preparation was good. The scope was removed. The patient tolerated procedure well. Blood loss none Complications none Sedation mac Findings 1. 4 mm polyp at 25 cm Jumbo biopsied and removed completely 2. Otherwise negative colonoscopy to cecum 3. Normal terminal ileum in the distal 10 cm Patient should have follow-up colonoscopy in 5-7 years pending pathology.
[2024-08-03 11:55] VITALS: BP 144/96; PULSE 95; RESP 14; TEMP 36.2; O2SAT 96
[2024-08-03 12:00] VITALS: BP 156/97; PULSE 100; RESP 16; O2SAT 97
[2024-08-03 12:05] VITALS: BP 113/92; PULSE 92; RESP 16; O2SAT 97
[2024-08-03 12:20] VITALS: BP 130/97; PULSE 88; RESP 14; TEMP 31.1; O2SAT 97
== END 2024-08-03 12:28 | disposition home or self-care (01) ==
PROVIDERS: PCP Family Medicine; Referring Provider Internal Medicine Gastroenterology; Visit Provider Internal Medicine Gastroenterology
PROC: 0DJD8ZZ Inspection of Lower Intestinal Tract, Via Natural or Artificial Opening Endoscopic (ICD-10-PCS; CPT 45378; principal; 2024-08-03 11:30)
DX: Z12.11 Encounter for screening for malignant neoplasm of colon (principal); Z86.0100 Personal history of colon polyps, unspecified; D12.6 Benign neoplasm of colon, unspecified
CPT/HCPCS: 45380; J2704

== ENCOUNTER → 2025-05-29 08:54 | Outpatient (CLI) | payer OTHER, SELFPAY ==
[2025-05-29 10:31] LABS: Add Manual Diff / Slide Review NO; Hematocrit 44.5 % (41-53); Hemoglobin 16.0 g/dL (13.5-17.5); Lymphocytes Absolute Auto 1500 /uL (1100-4500); Mean Corpuscular HGB Conc 35.9 % (30-36); Mean Corpuscular Hemoglobin 33.4 PG (26-34); Mean Corpuscular Volume 92.8 fL (80-100); Platelet Count 262 X10^3/uL (150-400)
[2025-05-29 10:41] LABS: Hemoglobin A1C% w Est Avg Glu 5.1 % (4.0-6.0)
[2025-05-29 11:04] LABS: Alanine Aminotransferase 57 IU/L (<50); Albumin 4.2 g/dL (3.5-5.0); Albumin Globulin Ratio 1.6 (1.0-2.8); Alkaline Phosphatase 99 U/L (38-126); Blood Urea Nitrogen 12 mg/dL (9-20); Calcium 9.1 mg/dL (8.4-10.2); Carbon Dioxide 26 mmol/L (22-32); Chloride 105 mmol/L (98-107); Cholesterol 136 mg/dL (140-199); Estimated Glomerular Filt Rate > 60 mL/min (>60); Globulin 2.7 g/dL (1.7-4.1); Glucose 99 mg/dL (70-99); HDL Cholesterol 42 mg/dL (40-60); HEMOLYSIS < 15 (0-50); Potassium 4.5 mmol/L (3.4-5.1); Sodium 140 mmol/L (137-145); Total Protein 6.9 g/dL (6.3-8.2); Triglycerides 116 mg/dL (35-150)
[2025-05-29 11:35] LABS: Thyroid Stimulating Hormone 1.94 uIU/mL (0.47-4.68)
== END ==
PROVIDERS: PCP Family Medicine; Referring Provider Family Medicine; Visit Provider Family Medicine
DX: Z00.00 Encounter for general adult medical examination without abnormal findings (principal); Z83.3 Family history of diabetes mellitus
CPT/HCPCS: 36415; 80053; 80061; 83036; 84443; 85025